=== PATIENT | male | born 1995 | race Caucasian/White ===

== ENCOUNTER 2017-04-20 00:25 | Emergency (ER) | payer OTHER ==
[~2017-04-20] VITALS: Ht 177.8 cm; Wt 81.2 kg
[2017-04-20 00:31] VITALS: TEMP 36.7; Ht 177.8 cm; Wt 81.2 kg
[2017-04-20 01:00] VITALS: O2SAT 96
[2017-04-20 01:04] LABS: BASO % 1.6 %; BASO ABS # 0.12 K/uL (0-0.2); COMPLETE YES; EOS % 0.8 %; HEMATOCRIT 43.1 % (42-52); IG% 0.1 %; LYMPH % 35.7 %; LYMPH ABS # 2.62 K/uL (1.2-3.4); MEAN CELL VOLUME 87.4 fL (80-100); MEAN CORPUSCULAR HEMOGLOBIN 29.8 pg (25-34); MEAN CORPUSCULAR HGB CONC 34.1 g/dl (32-36); MEAN PLATELET VOLUME 10.1 fL (7.4-10.4); MONO % 9.5 %; NEUT % 52.3 %; PLATELET COUNT 301 K/uL (130-400); RED BLOOD COUNT 4.93 M/uL (4.7-6.1); WHITE BLOOD COUNT 7.34 K/uL (4.8-10.8)
[2017-04-20 01:25] LABS: ALT/SGPT 24 U/L (12-78); BLOOD UREA NITROGEN 17 mg/dl (7-18); BUN/CREATININE RATIO 12.8 (10-20); CALCIUM 9.4 mg/dl (8.5-10.1); CARBON DIOXIDE 23 mmol/L (21-32); CHLORIDE 113 mmol/L (98-107); GLUCOSE 112 mg/dl (70-99); MAGNESIUM 2.2 mg/dl (1.8-2.4); POTASSIUM 3.1 mmol/L (3.5-5.1); SODIUM 142 mmol/L (136-145)
[2017-04-20 01:36] LABS: ALKALINE PHOSPHATASE 71 U/L (45-117); AST/SGOT 10 U/L (15-37)
[2017-04-20] MEDS ORDERED: ACET500C35 PO (01:47)
[2017-04-20] MEDS ORDERED: POTASSIUM CHLORIDE 10 MEQ TABCR PO STA (01:51)
[2017-04-20 02:02] VITALS: BP 132/76; PULSE 107; O2SAT 100
--- NOTE | 2017-04-20 03:57 | EMERGENCY ROOM VISIT NOTE ---
History First contact with patient: 00:37 Chief Complaint: DIZZY Stated Complaint: VERY LIGHT HEADED, NUMB IN FACE, NAUSEA Nursing Triage Summary: see triage note History of Present Illness The patient is a 21 year old male who presents to the Emergency Room with complaints of feeling lightheaded with intermittent tingling throughout his face /head and nausea for the past several days that is currently being weaned off of Diamox by his neurologist back in [facility]. 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 His neurologist now thinks it might be something out and this is why he is being weaned off the Diamox. He was on 1500 mg and is now down to 500 mg. He is currently here visiting his girlfriend who is normal program at [facility]. Patient denies chest pain, vision problems, localized weakness, localized numbness, facial pain, hearing problems, abdominal pain, vomiting, diarrhea, cold symptoms. Patient states he had a brain MRI a few months ago back in [facility]. Patient states his opening pressure from his LP was 29. Patient states he has a scheduled CT venous gram of his brain for 04 May. Patient states he is best to go back tomorrow to [facility] to follow-up with his neurologist. Review of Systems See HPI for pertinent positives & negatives. A total of 10 systems reviewed and were otherwise negative. Past Medical/Surgical History None Social History Smoking Status: Former Smoker Alcohol Use: none Drug Use: none Marital Status: in relationship Current/Historical Medications Scheduled Acetazolamide (Diamox), 500 MG PO DAILY Allergies Coded Allergies: No Known Allergies (Unverified , 04/20/17) Physical Exam Vital Signs Date Time Temp Pulse Resp B/P (MAP) Pulse Ox O2 Delivery O2 Flow Rate FiO2 04/20/17 02:02 107 20 132/76 100 Room Air 04/20/17 01:01 103 04/20/17 01:00 96 Room Air 04/20/17 00:31 36.7 115 20 129/80 99 Room Air Pain Rating (0-10): 7.0 Physical Exam VITALS: Vitals are noted on the nurse's note and reviewed by myself. Vital signs stable. GENERAL:White male in no acute distress, nondiaphoretic, well-developed well- nourished. SKIN: The skin was without rashes, erythema, edema, or bruising. There is no tenting of the skin. Capillary reflex less than 2 seconds. HEAD: Normocephalic atraumatic. EARS: External auditory canals clear, tympanic membranes pearly [place] without erythema or effusion bilaterally. EYES: Pupils equal round and reactive to light and accommodation. Conjunctivae without injection, sclerae without icterus. Extraocular movements intact. NOSE: Patent, turbinates without inflammation or discharge. No sinus tenderness. MOUTH: Mucous membranes moist. Pharynx without erythema or exudate. Uvula midline. Airway patent. Tongue does not deviate. NECK: Supple without nuchal rigidity. No lymphadenopathy. No thyromegaly. Cervical spine is nontender. No JVD. HEART: Regular rate and rhythm without murmurs gallops or rubs. LUNGS: Clear to auscultation bilaterally without wheezes, rales or rhonchi. No dullness to percussion. No retractions or accessory muscle use. ABDOMEN: Positive bowel sounds x 4. Normal tympanic percussion. Soft, nontender, without masses or organomegaly. Riley sign negative. No guarding or rebound tenderness. MUSCULOSKELETAL: No muscle atrophy, erythema, or edema noted. NEURO: Patient was alert and oriented to person place and time. Normal sensation to light and sharp touch. No focal neurological deficits. Cranial nerves II-12 grossly intact. No pronator drift. Cerebellar exam intact Medical Decision & Procedures Laboratory Results 04/20/17 00:50 Red Blood Count 4.93, Mean Corpuscular Volume 87.4, Mean Corpuscular Hemoglobin 29.8, Mean Corpuscular Hemoglobin Concent 34.1, Mean Platelet Volume 10.1, Neutrophils (%) (Auto) 52.3, Lymphocytes (%) (Auto) 35.7, Monocytes (%) (Auto) 9.5, Eosinophils (%) (Auto) 0.8, Basophils (%) (Auto) 1.6, Neutrophils # (Auto) 3.83, Lymphocytes # (Auto) 2.62, Monocytes # (Auto) 0.70, Eosinophils # (Auto) 0.06, Basophils # (Auto) 0.12 04/20/17 00:50 Test 04/20/17 00:50 White Blood Count 7.34 K/uL (4.8-10.8) Red Blood Count 4.93 M/uL (4.7-6.1) Hemoglobin 14.7 g/dL (14.0-18.0) Hematocrit 43.1 % (42-52) Mean Corpuscular Volume 87.4 fL (80-100) Mean Corpuscular Hemoglobin 29.8 pg (25-34) Mean Corpuscular Hemoglobin Concent 34.1 g/dl (32-36) Platelet Count 301 K/uL (130-400) Mean Platelet Volume 10.1 fL (7.4-10.4) Neutrophils (%) (Auto) 52.3 % Lymphocytes (%) (Auto) 35.7 % Monocytes (%) (Auto) 9.5 % Eosinophils (%) (Auto) 0.8 % Basophils (%) (Auto) 1.6 % Neutrophils # (Auto) 3.83 K/uL (1.4-6.5) Lymphocytes # (Auto) 2.62 K/uL (1.2-3.4) Monocytes # (Auto) 0.70 K/uL (0.11-0.59) Eosinophils # (Auto) 0.06 K/uL (0-0.5) Basophils # (Auto) 0.12 K/uL (0-0.2) RDW Standard Deviation 39.4 fL (36.4-46.3) RDW Coefficient of Variation 12.3 % (11.5-14.5) Immature Granulocyte % (Auto) 0.1 % Immature Granulocyte # (Auto) 0.01 K/uL (0.00-0.02) Anion Gap 6.0 mmol/L (3-11) Est Creatinine Clear Calc Drug Dose 92.0 ml/min Estimated GFR () 89.8 Estimated GFR (Non- 77.5 BUN/Creatinine Ratio 12.8 (10-20) Calcium Level 9.4 mg/dl (8.5-10.1) Magnesium Level 2.2 mg/dl (1.8-2.4) Total Bilirubin 0.2 mg/dl (0.2-1) Direct Bilirubin < 0.1 mg/dl (0-0.2) Aspartate Amino Transf (AST/SGOT) 10 U/L (15-37) Alanine Aminotransferase (ALT/SGPT) 24 U/L (12-78) Alkaline Phosphatase 71 U/L (45-117) Total Protein 7.7 gm/dl (6.4-8.2) Albumin 4.4 gm/dl (3.4-5.0) Thyroid Stimulating Hormone (TSH) 3.880 uIu/ml (0.300-4.500) Medications Administered Medications (Trade) Dose Ordered Sig/Jacque Route Start Time Stop Time Status Last Admin Dose Admin Potassium Chloride (Klor-Con M10) 40 meq NOW STAT PO 04/20/17 01:51 04/20/17 01:52 DC 04/20/17 01:58 40 MEQ ED Course Prior records/ancillary studies reviewed and summarized above. Nursing notes reviewed. The patient's history was concerning for facial tingling and lightheadedness who is currently being worked up by neurology back in [facility]. Differential diagnosis: Etiologies such as side effect of Diamox, metabolic, infection, hypo/ hyperglycemia, electrolyte abnormalities, cardiac sources, intracerebral event, toxicologic, neurologic, as well as others were entertained. Physical examination: As above. ER treatment provided: IV Lock Potassium On reassessment the patient felt better. Diagnostics interpretation by me: ECG: Normal sinus, normal intervals, no acute ST-T wave changes. Impression normal sinus rhythm interpreted by myself The labs revealed hypokalemia and this is replaced orally Imaging studies: Head CT negative for intracranial bleed per radiology I obtained the MRI of the brain and CT scan from [facility] from 2016 and was negative for acute findings Consultation: A consultation was placed with the neurologist from [facility] at the patient follows with and spoke to Dr. Russo. The case was discussed and diagnostics were reviewed. She recommends discharge and patient follow-up as scheduled outpatient Exam and history seem consistent with lightheadedness most likely a side effect of coming off of his Diamox. Patient was neurovascularly and neurologically intact. Unremarkable workup as above. He had a recent negative brain MRI. He had no deficits on exam. He was advised to follow-up as scheduled with neurology or here in the ER sooner for fevers, localized weakness, chest pains, worsening signs or symptoms or as needed. By the evaluation outlined above emergent etiologies such as infection, electrolyte abnormalities, cardiac sources, intracerebral event, toxologic, neurologic, abnormalities blood glucose, metabolic, as well as others were deemed relatively unlikely. The pt informed about the findings as listed above. All questions were answered and pleased with the treatment. Return instructions were outlined and the patient was discharged in stable condition. Referral: The patient was referred back to neurology and primary care physician for follow -up in 2 to 3 days for a recheck of the current condition. Case reviewed by attending Medical Decision As above Impression Primary Impression: Lightheaded Additional Impressions: Tingling Hypokalemia Departure Information Dispostion Home / Self-Care Condition GOOD Forms HOME CARE DOCUMENTATION FORM, IMPORTANT VISIT INFORMATION Patient Instructions [facility] Additional Instructions Rest and drink plenty of fluids as tolerated. Continue current medications. Return to the ER immediately for worsening or persistent lightheadedness, abdominal pain, vomiting, fevers, chest pains, difficulty breathing, worsening of your condition, or as needed. Follow up with your neurologist in 2-3 days for a recheck of your current condition. Problem Qualifiers
--- NOTE | 2017-04-20 07:08 | DIAGNOSTIC IMAGING REPORT ---
CT SCAN OF THE BRAIN WITHOUT IV CONTRAST CLINICAL HISTORY: Headache. Weakness. COMPARISON STUDY: No priors. TECHNIQUE: Unenhanced axial CT scan of the brain is performed from the vertex to the skull base. Automated dose control exposure was utilized. A dose lowering technique was utilized adhering to the principles of ALARA. CT DOSE: 614.27 mGy.cm FINDINGS: Brain parenchyma: The brain parenchyma is normal in appearance. There is no hemorrhage, mass effect, or evidence of acute territorial ischemia by CT criteria. [place]-white matter is preserved. No extra-axial fluid collection is seen. Ventricles, sulci, cisterns: Normal in configuration. Intracranial vasculature: The visualized intracranial vasculature at the skull base is normal in appearance. Calvarium: Unremarkable. Sinuses and mastoids: The visualized paranasal sinuses are clear. The mastoid air cells are well pneumatized. Orbits: The bony orbits are grossly intact. IMPRESSION: No acute intracranial abnormality. Electronically signed by: Caleb Nance M.D. 04/20/2017 7:07 AM Dictated Date/Time: 04/20/2017 7:06 AM
== END 2017-04-20 02:25 | disposition home or self-care (01) ==
LOC: C.EDB 00:27
DX: R42 Dizziness and giddiness (principal); R20.2 Paresthesia of skin; E87.6 Hypokalemia; Z87.891 Personal history of nicotine dependence

== ENCOUNTER 2017-06-02 18:07 | Emergency (ER) | payer OTHER ==
[~2017-06-02] VITALS: Ht 177.8 cm; Wt 74.4 kg
[~2017-06-02 18:07] MED LIST: ACET500C35 PO
[2017-06-02 18:18] VITALS: TEMP 36.4; Ht 177.8 cm; Wt 74.4 kg
[2017-06-02] MEDS ORDERED: DiphenhydrAMINE HCL 50 MG/ML VIAL IV STA (18:53)
[2017-06-02] MEDS ORDERED: ACETAMINOPHEN 500 MG TAB PO STA (18:53)
[2017-06-02] MEDS ORDERED: PROMETHAZINE HCL INJ 25 MG/ML 1 ML VIAL IM STA (18:53)
[2017-06-02] MEDS ORDERED: KETOROLAC TROMETHAMINE 30 MG/ML VIAL IV STA (18:53)
[2017-06-02] MEDS ORDERED: SODIUM CHLORIDE 0.9% 1000ML 1,000 ML IV STA (18:53)
[2017-06-02] MEDS ORDERED: TOPI25TA10 PO (18:58)
[2017-06-02 19:24] LABS: BASO % 2.8 %; BASO ABS # 0.11 K/uL (0-0.2); COMPLETE YES; EOS % 0.5 %; HEMATOCRIT 40.6 % (42-52); LYMPH % 28.5 %; LYMPH ABS # 1.13 K/uL (1.2-3.4); MEAN CELL VOLUME 85.3 fL (80-100); MEAN CORPUSCULAR HEMOGLOBIN 29.6 pg (25-34); MEAN CORPUSCULAR HGB CONC 34.7 g/dl (32-36); MEAN PLATELET VOLUME 10.7 fL (7.4-10.4); MONO % 13.6 %; NEUT % 54.6 %; PLATELET COUNT 242 K/uL (130-400); RED BLOOD COUNT 4.76 M/uL (4.7-6.1); WHITE BLOOD COUNT 3.97 K/uL (4.8-10.8)
[2017-06-02 19:37] LABS: PARTIAL THROMBOPLASTIN RATIO 1.1; PROTHROMBIN TIME (PATIENT) 11.1 SECONDS (9.0-12.0)
[2017-06-02 19:42] LABS: BUN/CREATININE RATIO 10.7 (10-20); CREATININE 0.96 mg/dl (0.60-1.40); POTASSIUM 3.1 mmol/L (3.5-5.1)
[2017-06-02 20:15] LABS: LYME DISEASE AB IGG NEG (NEG); LYME DISEASE AB IGM NEG (NEG)
--- NOTE | 2017-06-02 20:36 | DIAGNOSTIC IMAGING REPORT ---
CT SCAN OF THE BRAIN WITHOUT IV CONTRAST CLINICAL HISTORY: Headache. COMPARISON STUDY: CT of the brain dated 04/20/2017. TECHNIQUE: Unenhanced axial CT scan of the brain is performed from the vertex to the skull base. A dose lowering technique was utilized adhering to the principles of ALARA. CT DOSE: 614.27 mGy.cm FINDINGS: Brain parenchyma: The brain parenchyma is normal in appearance. There is no hemorrhage, mass effect, or evidence of acute territorial ischemia by CT criteria. [place]-white matter is preserved. No extra-axial fluid collection is seen. Ventricles, sulci, cisterns: Normal in configuration. Intracranial vasculature: The visualized intracranial vasculature at the skull base is normal in appearance. Calvarium: Unremarkable. Sinuses and mastoids: The visualized paranasal sinuses are clear. The mastoid air cells are well pneumatized. Orbits: The bony orbits are grossly intact. IMPRESSION: No acute intracranial abnormality. Electronically signed by: Caleb Nance M.D. 06/02/2017 8:35 PM Dictated Date/Time: 06/02/2017 8:33 PM
[2017-06-02] MEDS ORDERED: FRCT/ PO (21:04)
--- NOTE | 2017-06-02 21:06 | EMERGENCY ROOM VISIT NOTE ---
History Report prepared by Mishaibanuradha: Diego Martin Under the Supervision of: Dr. Alirio Dean M.D. First contact with patient: 18:34 Chief Complaint: NEURO SYMPTOMS Stated Complaint: TINGLING AND PRESSURE IN HEAD,WEAK,VISION ISSUES History of Present Illness The patient is a 21 year old white male who presents to the ED with a cc of intermittent generalized neurologic symptoms beginning eight months ago. His symptoms include intermittent episodes of heart palpitations, visual changes, headaches, ear "pressure", and left arm weakness. His symptoms occur simultaneously and typically begin with his heart racing. Notes a constant dark "ring" in the visual field of his right eye. The patient has followed up with a neurologist but has not been able to identify the source of his symptoms. Symptoms have worsened in the past three days. Negative diarrhea, urinary symptoms, nausea, vomiting, rashes. He denies tick bites. No history of migraines, MS, or seizures. He lives in [place], and is currently in [place] visiting his girlfriend. Otherwise, he denies recent travel. He denies recent antibiotic use. He has had MRIs and CT scans. He has had an LP before which was normal other than a slightly high pressure. Source of History: patient Onset: Eight months ago Position: other (generalized) Quality: other (neurologic symptoms) Timing: intermittent Associated Symptoms: + headache, + weakness (left arm), No nausea, No vomiting, No diarrhea, No urinary symptoms, No rash Note: Symptoms include intermittent episodes of heart palpitations, visual changes, ear "pressure". Review of Systems See HPI for pertinent positives and negatives. A total of ten systems were reviewed and were otherwise negative. Past Medical & Surgical Medical Problems: (1) Hypokalemia (2) Lightheaded (3) No Known Active Medical Problems (4) Tingling Family History No pertinent family history stated. Social History Smoking Status: Never Smoker Alcohol Use: none Drug Use: none Marital Status: in relationship Current/Historical Medications Scheduled Acetazolamide (Diamox), 500 MG PO TID Topiramate (Topamax), 25 MG PO DAILY Scheduled PRN Acetamin/Butalbital/Caffeine (Fioricet), 1 TAB PO BID PRN for Pain Allergies Coded Allergies: No Known Allergies (Unverified , 06/02/17) Physical Exam Vital Signs Date Time Temp Pulse Resp B/P (MAP) Pulse Ox O2 Delivery O2 Flow Rate FiO2 06/02/17 20:38 72 124/76 100 Room Air 06/02/17 19:34 72 132/88 100 Room Air 06/02/17 18:39 89 06/02/17 18:18 36.4 112 14 131/88 99 Room Air Physical Exam GENERAL: Awake, alert, well-appearing, NAD HENT: Normocephalic, atraumatic. 20/25 vision in the right eye. 20/20 vision in the left eye. PERRL. No APD. EOMI fully without pain. No proptosis. Gross vision intact. No hypopyon. No hyphema. No visual field deficits bilaterally. No periorbital swelling. EYES: Normal conjunctiva. Sclera non-icteric. NECK: Supple. No nuchal rigidity. FROM. RESPIRATORY: CTAB, no rhonchi, wheezing, crackles CARDIAC: RRR, no MRG ABDOMEN: Soft, NTND, BS+ MSK: No chest wall TTP, no LE edema NEURO: CN 2-12 intact, 5/5 upper and lower extremity strength, no dysmetria, no drift, good finger to nose, no sensory deficits. SKIN: No rash or jaundice noted. Medical Decision & Procedures ER Provider Diagnostic Interpretation: Radiology results as stated below per my review and radiologist interpretation: CT SCAN OF THE BRAIN WITHOUT IV CONTRAST FINDINGS: Brain parenchyma: The brain parenchyma is normal in appearance. There is no hemorrhage, mass effect, or evidence of acute territorial ischemia by CT criteria. [place]-white matter is preserved. No extra-axial fluid collection is seen. Ventricles, sulci, cisterns: Normal in configuration. Intracranial vasculature: The visualized intracranial vasculature at the skull base is normal in appearance. Calvarium: Unremarkable. Sinuses and mastoids: The visualized paranasal sinuses are clear. The mastoid air cells are well pneumatized. Orbits: The bony orbits are grossly intact. IMPRESSION: No acute intracranial abnormality. Electronically signed by: Caleb Nance M.D. 06/02/2017 8:35 PM Laboratory Results 06/02/17 19:15 Red Blood Count 4.76, Mean Corpuscular Volume 85.3, Mean Corpuscular Hemoglobin 29.6, Mean Corpuscular Hemoglobin Concent 34.7, Mean Platelet Volume 10.7, Neutrophils (%) (Auto) 54.6, Lymphocytes (%) (Auto) 28.5, Monocytes (%) (Auto) 13.6, Eosinophils (%) (Auto) 0.5, Basophils (%) (Auto) 2.8, Neutrophils # (Auto ) 2.17, Lymphocytes # (Auto) 1.13, Monocytes # (Auto) 0.54, Eosinophils # (Auto ) 0.02, Basophils # (Auto) 0.11 06/02/17 19:15 Test 06/02/17 19:15 White Blood Count 3.97 K/uL (4.8-10.8) Red Blood Count 4.76 M/uL (4.7-6.1) Hemoglobin 14.1 g/dL (14.0-18.0) Hematocrit 40.6 % (42-52) Mean Corpuscular Volume 85.3 fL (80-100) Mean Corpuscular Hemoglobin 29.6 pg (25-34) Mean Corpuscular Hemoglobin Concent 34.7 g/dl (32-36) Platelet Count 242 K/uL (130-400) Mean Platelet Volume 10.7 fL (7.4-10.4) Neutrophils (%) (Auto) 54.6 % Lymphocytes (%) (Auto) 28.5 % Monocytes (%) (Auto) 13.6 % Eosinophils (%) (Auto) 0.5 % Basophils (%) (Auto) 2.8 % Neutrophils # (Auto) 2.17 K/uL (1.4-6.5) Lymphocytes # (Auto) 1.13 K/uL (1.2-3.4) Monocytes # (Auto) 0.54 K/uL (0.11-0.59) Eosinophils # (Auto) 0.02 K/uL (0-0.5) Basophils # (Auto) 0.11 K/uL (0-0.2) RDW Standard Deviation 42.0 fL (36.4-46.3) RDW Coefficient of Variation 13.5 % (11.5-14.5) Immature Granulocyte % (Auto) 0.0 % Immature Granulocyte # (Auto) 0.00 K/uL (0.00-0.02) Prothrombin Time 11.1 SECONDS (9.0-12.0) Prothromb Time International Ratio 1.0 (0.9-1.1) Activated Partial Thromboplast Time 28.0 SECONDS (21.0-31.0) Partial Thromboplastin Ratio 1.1 Anion Gap 8.0 mmol/L (3-11) Est Creatinine Clear Calc Drug Dose 124.6 ml/min Estimated GFR () 129.5 Estimated GFR (Non- 111.8 BUN/Creatinine Ratio 10.7 (10-20) Calcium Level 9.0 mg/dl (8.5-10.1) Lyme Disease IgG Antibody NEG (NEG) Lyme Disease IgM Antibody NEG (NEG) Laboratory results reviewed by me Medications Administered Medications (Trade) Dose Ordered Sig/Jacque Route Start Time Stop Time Status Last Admin Dose Admin Promethazine HCl (Phenergan Inj) 25 mg NOW STAT IM 06/02/17 18:53 06/02/17 18:55 DC 06/02/17 19:31 25 MG Sodium Chloride 1,000 ml @ 999 mls/hr Q1H1M STAT IV 06/02/17 18:53 06/02/17 19:53 DC 06/02/17 19:27 999 MLS/HR Ketorolac Tromethamine (Toradol Inj) 30 mg NOW STAT IV 06/02/17 18:53 06/02/17 18:55 DC 06/02/17 19:29 30 MG Acetaminophen (Tylenol Tab) 1,000 mg NOW STAT PO 06/02/17 18:53 06/02/17 18:55 DC 06/02/17 19:25 1,000 MG Diphenhydramine HCl (Benadryl Inj) 25 mg NOW STAT IV 06/02/17 18:53 06/02/17 18:56 DC 06/02/17 19:26 25 MG ED Course 1838: The patient was evaluated in room C5. A complete history and physical exam was performed. 2034: I reevaluated the patient. Discussed results and discharge instructions: he verbalized understanding and agreement. The patient is ready for discharge. Medical Decision The patient is a 21 year old white male who presents to the ED with a cc of intermittent generalized neurologic symptoms beginning eight months ago. His symptoms include intermittent episodes of heart palpitations, visual changes, headaches, ear "pressure", and left arm weakness. Differential diagnosis: Etiologies such as metabolic, infection, hypo/hyperglycemia, electrolyte abnormalities, cardiac sources, intracerebral event, toxicologic, neurologic, as well as others were entertained. Patient was seen and evaluated the bedside. Patient was complaining of several complaints and states that he's had an issue with chronic headaches. Patient does see a neurologist back in [place] but is up visiting his girlfriend. Patient denies any recent travel or antibiotics with the exception of trauma [place]. Patient is concerned as he felt like he had some left arm weakness and some trouble with his vision. Upon exam patient had no gross visual acuity deficits had good corrected patient with his glasses. Patient was complaining of a small ring that was of his right eye located laterally. Patient states that he has not felt like his had any foreign bodies and has not done any outdoor work release felt like something is gotten into his eye. Patient is no hyphema or hypopyon noted at the bedside. Patient is not proptotic has no periorbital or preseptal cellulitis or edema. Patient has had LPs, MRIs, and other advanced imaging completed by his neurologist back in [place]. Patient states that he did have an elevated opening pressure 29 and thus been placed on Diamox for possible idiopathic intracranial hypertension. Patient has no history of seizures. Patient also has no neurologic deficits. On exam patient CN II through 12 intact. Upper and lower extremity strength no sensory deficit patient agreed finger to nose and no drift. Patient's left upper extremity was working very well again without any deficit contrary to the patient's initial concern that the patient had left upper extremity weakness. Patient's blood work is fairly unremarkable. He was treated for Lyme's is negative. Patient's white blood cell count was trace under 4,000. Patient has no other infectious symptoms. Patient had no signs of meningismus neck stiffness. Patient was given strict follow-up, discharge, return precautions. Patient was told to follow-up with his neurologist. Patient agreed with plan of care patient was safely discharged home. Medication Reconcilliation Current Medication List: was personally reviewed by me Blood Pressure Screening Patient's blood pressure: Elevated blood pressure Blood pressure disposition: Elevated BP felt to be situational Impression Primary Impression: Headache Scribe Attestation The scribe's documentation has been prepared under my direction and personally reviewed by me in its entirety. I confirm that the note above accurately reflects all work, treatment, procedures, and medical decision making performed by me. Departure Information Dispostion Home / Self-Care Prescriptions Acetamin/Butalbital/Caffeine (FIORICET) 1 Ea Tab 1 TAB PO BID Y for Pain for 7 Days, #14 TAB Prov: Alirio Dean M.D. 06/02/17 Referrals No Doctor, Assigned (PCP) Patient Instructions Headache Pain, [facility] Additional Instructions Please return to the emergency department if you have worsening or recurrent symptoms not amenable to at-home treatment. Please call for a follow-up appointment with her primary care physician. Please take your medications as prescribed. If you have other concerns and/or complaints please feel free to also call your primary care physician's office or return the ED for further evaluation, management, and treatment. You may take 600 mg Ibuprofen every 6 hours as needed for pain with food for no more than 2 consecutive days. You may take tylenol 1000mg every 6 hours as needed for pain. You may take motrin and tylenol separately or at the same time. You have been examined and treated today on an emergency basis only. This is not a substitute for, or an effort to provide, complete comprehensive medical care. It is impossible to recognize and treat all injuries or illnesses in a single emergency department visit. It is therefore important that you follow up closely with [facility]. Call as soon as possible for an appointment. Thank you for your time and consideration. I look forward to speaking with you again soon. Please don't hesitate to call us if you have any questions. Problem Qualifiers Primary Impression: Headache Headache type: unspecified Headache chronicity pattern: unspecified pattern Intractability: not intractable Qualified Codes: R51 - Headache
[2017-06-02 22:12] VITALS: BP 124/73; PULSE 77; O2SAT 100
== END 2017-06-02 22:14 | disposition home or self-care (01) ==
LOC: C.EDB 18:09 → C.EDC 22:14
DX: R51 Headache (principal); Z79.899 Other long term (current) drug therapy; Z98.890 Other specified postprocedural states